=== PATIENT | female | born 1950 | race Caucasian/White ===

== ENCOUNTER 2016-08-04 22:03 | Emergency (ER) ==
[2016-08-04] MEDS ORDERED: ASPIRIN PO STA (22:12)
--- NOTE | 2016-08-04 22:17 | ED EKG INTERP ---
EKG Interpretation - EKG Time of EKG reading by physician:: 22:16 EKG Read and Signed by:: Lonny Harry EKG Interpretation (*Must complete 3 of following elements*): Abnormal (Low voltage QRS; Cannot rule out inferior infarct, age undetermined) Rate: 113 Rhythm: Sinus tachycardia Attestation - Scribe Verification/Attestation Scribe:: José Phillips Acting as Scribe for:: Lonny Harry [employer] documention review:: This chart was documented by a scribe and accurately reflects the service the provider performed and the decisions made by the provider.
[2016-08-04 22:19] LABS: MANUAL DIFF NEEDED? NO
[2016-08-04 22:38] LABS: BASO% 0.8 % (0.0-0.8); EOS# 0.15 X1000 (0.0-0.7); EOS% 1.2 % (0.0-10.0); HEMATOCRIT 39.9 % (37.0-47.0); HEMOGLOBIN 13.9 g/dL (12.0-16.0); IMM GRAN# 0.02 X1000 (0.0-0.04); IMM GRAN% 0.2 % (0.0-0.5); LYMPH# 3.72 X1000 (1.2-3.4); LYMPH% 29.7 % (20.5-51.1); MCH 30.5 PG (27-31); MCHC 34.8 g/dL (33-37); MCV 87.5 FL (81-99); MONO# 1.05 X1000 (0.11-0.59); MONO% 8.4 % (1.7-9.3); MPV 10.5 FL (7.4-10.4); NEUT% 59.7 % (42.2-75.2); PLT 373 X1000 (130-400); RBC 4.56 XMIL (4.2-5.4)
[2016-08-04 22:40] LABS: ALBUMIN 4.4 g/dL (3.5-5.0); CALCIUM 10.2 mg/dL (8.8-10.2); TOTAL BILIRUBIN 0.85 mg/dL (0.20-1.00); TOTAL PROTEIN 7.6 g/dL (6.3-8.3)
[2016-08-04 22:46] LABS: PROTIME 10.6 Seconds (9.2-11.7); PTT 26.6 Seconds (22.0-36.0)
[2016-08-04 23:15] LABS: CK INDEX 1.5 (0.0-2.5); CK-MB 3.03 ng/mL (0.0-5.0)
[2016-08-04] MEDS ORDERED: MORPHINE IV ONE (23:24)
[2016-08-04] MEDS ORDERED: ZOFRAN IV ONE (23:24)
--- NOTE | 2016-08-04 23:26 | PROVIDER DOCUMENTATION ---
HPI-Chest Pain - General Chief Complaint: Chest Pain Stated Complaint: CP Time Seen by Provider: 08/04/16 23:05 Source: patient Allergies/Adverse Reactions: Patient Allergies Allergy/AdvReac Type Severity Reaction Status Date / Time codeine Allergy NAUSEA/VOMI Verified 08/04/16 22:42 TING Home Medications: Home Medication List Medication Instructions Recorded Confirmed Last Taken Type Aspirin EC 81 mg PO DAILY 09/04/15 08/04/16 08/04/16 History Clopidogrel Bisulfate [Plavix] 75 mg PO DAILY 09/04/15 08/04/16 08/04/16 History Meclizine HCl [Antivert] 12.5 mg PO TID PRN PRN 09/04/15 08/04/16 1 Day Ago History Metoprolol Succinate E.r. [Toprol 12.5 mg PO QAM 09/04/15 08/04/16 08/04/16 History Xl] Nitroglycerin [Nitrostat] 0.4 mg SL DIRECTED 09/04/15 08/04/16 08/04/16 History Triamterene/Hctz [Maxzide-25] 1 each PO DAILY 09/04/15 08/04/16 08/04/16 History Gabapentin 300 mg PO 4XDAY 08/04/16 08/04/16 08/04/16 History Levocetirizine Dihydrochloride 5 mg PO QPM 08/04/16 08/04/16 08/04/16 History [Xyzal] Potassium Chloride [Klor-Con 8] 8 meq PO DAILY 08/04/16 08/04/16 08/04/16 History Tramadol [Ultram] 50 mg PO TID PRN 08/04/16 08/04/16 08/04/16 History - History of Present Illness-CP Nature of Presenting Problem: 66 yof c/o chest pain. Pt has history of CAD, with MO and Stents x3. Pt feels like the pain is the same as some of her previous MO. Pt took 2 nitros at home with some relief. Nausea but no vomiting. Mild SOB. Location: reports: substernal. denies: central, epigastric, shoulder, back, abdomen, other Chest Pain Radiation: reports: back. denies: no radiation, jaw, arms, neck, shoulders, sternal notch, epigastric, other Quality of Pain: reports: pressure, tightness. denies: none, aching, burning, cramping, dull, fullness, indigestion, sharp, stabbing, tearing, throbbing, other Severity in ED: moderate Onset/Duration: 4-6 hours ago Timing: still present Context/Activities at Onset: reports: rest. denies: none, light activity, moderate activity, vigorous activity, recent emotional stress, recent physical stress, recent trauma history, possible bad food, cold exposure, eating, out of country travel, sleep, sexual activity, other Modifying Factors: improves with: other medication (Nitro). worse with: nothing , analgesics, antacids, breathing, cold/heat therapy, coughing, defecating, eating, exercise, immobilization, lying down, massage, movement, palpation, rest , urinating, vomiting, other Associated Symptoms: reports: back pain, diaphoresis, nausea, shortness of breath. denies: denies symptoms, abdominal pain, dizziness, edema, fatigue, fever/chills, headache, heartburn, rash, swelling/lump in chest, syncope, vomiting, weakness Nitro Today/Relief: 0.4 mg x 2, provided at home, mild relief Aspirin Treatment Today: 325 mg x 1, provided by ED Prior Chest Pain/Cardiac Workup: reports: angina, cardiac cath, heart attack. denies: no prior chest pain, no prior cardiac workup, non-cardiac, cardiolite scan, echocardiography, pulmonary embolism, stress test, thallium scan, other Similar Symptoms Previously?: No Recently Seen Here or By Another Healthcare Provider: No Review of Systems - Adult - REVIEW OF SYSTEMS - ADULT Constitutional: reports: see HPI. denies: no symptoms reported, chills, fever, fatique, night sweats, weight gain, weight loss, other Eyes: reports: no symptoms reported. denies: see HPI, discharge, dry eyes, decreased vision, blurred vision, double vision, eye pain, redness, other Ears, Nose, Mouth & Throat: reports: no symptoms reported. denies: see HPI, ear discharge, ear pain, hearing loss, tinnitus, epistaxis, sinus problem, nose pain, loose teeth, mouth/dental pain, mouth swelling, hoarseness, throat pain, throat swelling, other Cardiovascular: reports: see HPI, chest pain. denies: no symptoms reported, edema, heart murmur, irregular heart rate, orthopnea, palpitations, poor circulation, PND, syncope, other Respiratory: reports: see HPI, shortness of breath. denies: no symptoms reported, chronic cough, cough, dyspnea on exertion, excessive sputum production , hemoptysis, pleurisy, wheezing, other Gastrointestinal: reports: see HPI, nausea. denies: no symptoms reported, abdominal pain, hematemesis, constipation, diarrhea, difficulty swallowing, frequent heartburn, poor appetite, rectal bleeding, vomiting, other Genitourinary: reports: no symptoms reported. denies: see HPI, dysuria, discharge, frequency, flank pain, frequent UTI's, hematuria, hesitency, incontinence, urinary retention, urgency, other Musculoskeletal: reports: no symptoms reported. denies: see HPI, bone pain, back pain, frequent leg cramps, joint pain, joint swelling, muscle aches, muscle weakness, neck pain, other Integumentary: reports: no symptoms reported. denies: see HPI, hives, hair loss , itching, mole changes, nail changes, rash, skin sores/ulcer, skin thickening, other Neurological: reports: no symptoms reported. denies: see HPI, ataxia, dizziness /vertigo, headache/migraines, loss of balance, numbness, paresthesia, seizure, slurred speech, syncope, tremors, other Psychiatric: reports: no symptoms reported. denies: see HPI, anxiety, anti- depressant use, alcohol/drug dependence, depression, emotional problems, insomnia, panic attacks, suicidal thoughts, other All Other Systems: Reviewed and Negative Past History - Adult - PAST MEDICAL HISTORY-ADULT Review of Records: reports: Old Records Reviewed, Nursing Assessment Review, Medications Reviewed, Social history reviewed & non-contributory. Major Childhood Illnesses: reports: denies history Cardiovascular: reports: CAD, HTN, MO Respiratory: reports: denies history Gastrointestinal: reports: denies history Obstetrical/Gynecological: reports: denies history Genitourinary: reports: denies history Musculoskeletal: reports: denies history Neurological: reports: denies history Endocrine/Immune: reports: denies history Other Conditions: reports: denies history - PRIOR SURGERIES/PROCEDURES Surgical/Procedure History: reports: none - IMMUNIZATION STATUS Childhood Immunizations: See Nurse Assessment Flu Vaccine: See Nurse Assessment - FAMILY HISTORY Family History: reviewed, not pertinent Physical Exam-General - PHYSICAL EXAM-ADULT Initial Vital Signs Reviewed: Yes - CONSTITUTIONAL General Appearance: appears well, alert, no apparent distress. negative: mild distress, moderate distress, severe distress, cachetic, obese, thin, anxious, lethargic, slow to respond, obtunded, combative, other - EYES Eyes: PERRL/EOMI, pink conjunctivae. negative: fundi clear, no AV nicking, anisocoria, conjuctival exudate, EOM palsy, meningismus, pale conjunctivae, photophobia, sclera injected, scleral icterus, subconjunctival hemorrhage, sunken eyes, other - HEAD, EARS, NOSE, MOUTH & THROAT HENMT: normocephalic/atraumatic, moist mucous membranes, normal ENT inspection, TMs normal, pharynx normal. negative: angioedema, dental decay, hearing deficit , pharyngeal erythema, tonsillar exudate, TM abnormal, TM obscurred by cerumen, frontal tenderness, maxillary tenderness, other - NECK Neck: non-tender, full range of motion, supple, normal inspection. negative: Brudzinski's sign, carotid bruit, C-spine tenderness, limited range of motion, lymphadenopathy, meningismus, trachial deviation, tender lateral, tender midline , thyromegaly, other - RESPIRATORY Respiratory: chest non-tender, lungs clear, normal breath sounds, no pleuratic chest pain, no respiratory distress, no accessory muscle use. negative: respiratory distress, decreased breath sounds, accessory muscle use, crackles, rales, rhonchi, stridor, wheezing, dull on percussion, prolonged expiration, pain on inspiration, plerual rub, retractions, splinting, decreased rate, increased rate, crepitus, other - CARDIOVASCULAR Cardiovascular: normal peripheral pulses, regular rate, rhythm, no edema, no gallop, no JVD, no murmur. negative: JVD, bradycardia, tachycardia, diastolic murmur, systolic murmur, gallop/S3, gallop/S4, extra beats, friction rub, irregularly irregular, PMI displaced laterally, other - CHEST (BREASTS) Chest/Breast: deferred - GASTROINTESTINAL (ABDOMEN) Abdominal Exam: normal bowel sounds, non tender, soft, no organomegaly, no pulsatile mass. negative: abdominal bruit, abnormal bowel sounds, distended, guarding, rigid, rebound, tenderness, hernia, mass, hepatomegaly, spleenomegaly , McBurney's point tenderness, Ovalle's sign, obturator sign, prominent aortic pulsations, psoas, Rovsing's sign, other - GENITOURINARY Female Genitalia/Pelvic Exam: deferred. negative: external exam normal, speculum exam normal, bimanual exam normal, no cerv. motion tender, no masses, active bleeding, blood, cervicitis, discharge, herpes-like ulcerations, lesions , mass, tender w/ cervical motion, tender adnexa, tender uterus, ulcers, other Rectal Exam: deferred. negative: normal exam, normal rectal tone, black stool, blood streaked stool, decreased tone, hemorrhoids, mass, prostate enlarged/ nodule, tenderness, other Hemoccult Exam: deferred - LYMPHATIC Lymphatic: no adenopathy. negative: axilla node tender, cervical node tenderness, inguinal node tender, enlargement, striations, streaking, other - MUSCULOSKELETAL Back Exam: normal inspection, no CVA tenderness, no vertebral tenderness. negative: CVA tenderness, decreased range of motion, ecchymosis, kyphosis, lordosis, muscle spasm, scoliosis, swelling, vertebral tenderness, other Extremity: normal range of motion, non-tender, normal gait, normal inspection, no pedal edema, no calf tenderness, normal capillary refill. negative: pelvis stable, abnormal NV exam, calf tenderness, deformity, erythema, inflammation, joint effusion, pulse deficit, pedal edema, slow capillary refill, swelling, tenderness, other Progress - PLAN OF CARE/RESULTS Progress/Plan/Lab Results: Laboratory Tests 08/04/16 08/04/16 08/04/16 22:15 22:15 22:15 WBC 12.52 H RBC 4.56 Hgb 13.9 Hct 39.9 MCV 87.5 MCH 30.5 MCHC 34.8 RDW Std Deviation 13.0 Plt Count 373 MPV 10.5 H Immature Gran % (Auto) 0.2 Neut % (Auto) 59.7 Lymph % (Auto) 29.7 Coffey % (Auto) 8.4 Eos % (Auto) 1.2 Baso % (Auto) 0.8 Immature Gran # (Auto) 0.02 Neut # (Auto) 7.48 H Lymph # (Auto) 3.72 H Coffey # (Auto) 1.05 H Eos # (Auto) 0.15 Baso # (Auto) 0.10 PT INR PTT (Actin FS) D-Dimer 0.28 Sodium 138 Potassium 3.0 L Chloride 96 L Carbon Dioxide 23 L Anion Gap 19 BUN 16 Creatinine 1.1 H Estimated GFR/1.73 m2 50 BUN/Creatinine Ratio 15 Glucose 118 H Calculated Osmolality 278 Calcium 10.2 Magnesium 2.0 Total Bilirubin 0.85 AST 20 ALT 12 Alkaline Phosphatase 62 Creatine Kinase 200 H Creatine Kinase Index 1.5 CK-MB (CK-2) 3.03 Troponin T [id number] Pept Total Protein 7.6 Albumin 4.4 Globulin 3.2 Albumin/Globulin Ratio 1.4 08/04/16 08/04/16 08/04/16 22:15 22:15 22:15 WBC RBC Hgb Hct MCV MCH MCHC RDW Std Deviation Plt Count MPV Immature Gran % (Auto) Neut % (Auto) Lymph % (Auto) Coffey % (Auto) Eos % (Auto) Baso % (Auto) Immature Gran # (Auto) Neut # (Auto) Lymph # (Auto) Coffey # (Auto) Eos # (Auto) Baso # (Auto) PT 10.6 INR 1.00 PTT (Actin FS) 26.6 D-Dimer Sodium Potassium Chloride Carbon Dioxide Anion Gap BUN Creatinine Estimated GFR/1.73 m2 BUN/Creatinine Ratio Glucose Calculated Osmolality Calcium Magnesium Total Bilirubin AST ALT Alkaline Phosphatase Creatine Kinase Creatine Kinase Index CK-MB (CK-2) Troponin T < 0.010 Lrg-[id number] Pept 92 Total Protein Albumin Globulin Albumin/Globulin Ratio Orders Category Date Time Status Saline Loc NOW Care 08/04/16 23:24 Active CHEST-2 VIEWS [RAD] Stat Exams 08/04/16 22:12 Taken CBC WITH ELECTRONIC DIFF [HEME] Stat Lab 08/04/16 22:15 Completed CK PROFILE [SP CHEM] Stat Lab 08/04/16 22:15 Completed COMPREHENSIVE METABOLIC PANEL [CHEM] Stat Lab 08/04/16 22:15 Completed D-DIMER [CHEM] Stat Lab 08/04/16 22:15 Completed MAGNESIUM [CHEM] Stat Lab 08/04/16 22:15 Completed PRO B-NATRIURETIC PEPTIDE Stat Lab 08/04/16 22:15 Completed PROTIME WITH INR [COAG] Stat Lab 08/04/16 22:15 Completed PTT [COAG] Stat Lab 08/04/16 22:15 Completed TROPONIN T Stat Lab 08/04/16 22:15 Completed Aspirin Med 08/04/16 22:12 Discontinued 325 mg PO STAT STA Morphine Med 08/04/16 23:24 Discontinued 4 mg IV NOW ONE Ondansetron [Zofran] Med 08/04/16 23:24 Discontinued 4 mg IV NOW ONE EKG [EKG] Stat Ther 08/04/16 22:06 Ordered Vital Signs Temp Pulse Resp BP Pulse Ox 08/04/16 22:41 105 H 20 183/83 99 08/04/16 22:07 98.1 F 113 H 20 171/70 98 codeine Allergy (Verified 08/04/16 22:42) NAUSEA/VOMITING Aspirin EC 81 mg PO DAILY 09/04/15 Clopidogrel Bisulfate [Plavix] 75 mg PO DAILY 09/04/15 Meclizine HCl [Antivert] 12.5 mg PO TID PRN PRN 09/04/15 Metoprolol Succinate E.r. [Toprol Xl] 12.5 mg PO QAM 09/04/15 Nitroglycerin [Nitrostat] 0.4 mg SL DIRECTED 09/04/15 Triamterene/Hctz [Maxzide-25] 1 each PO DAILY 09/04/15 Gabapentin 300 mg PO 4XDAY 08/04/16 Levocetirizine Dihydrochloride [Xyzal] 5 mg PO QPM 08/04/16 Potassium Chloride [Klor-Con 8] 8 meq PO DAILY 08/04/16 Tramadol [Ultram] 50 mg PO TID PRN 08/04/16 Laboratory 08/04/16 08/04/16 08/04/16 22:15 22:15 22:15 WBC RBC Hgb Hct MCV MCH MCHC RDW Std Deviation Plt Count MPV Immature Gran % (Auto) Neut % (Auto) Lymph % (Auto) Coffey % (Auto) Eos % (Auto) Baso % (Auto) Immature Gran # (Auto) Neut # (Auto) Lymph # (Auto) Coffey # (Auto) Eos # (Auto) Baso # (Auto) PT 10.6 INR 1.00 PTT (Actin FS) 26.6 D-Dimer Sodium Potassium Chloride Carbon Dioxide Anion Gap BUN Creatinine Estimated GFR/1.73 m2 BUN/Creatinine Ratio Glucose Calculated Osmolality Calcium Magnesium Total Bilirubin AST ALT Alkaline Phosphatase Creatine Kinase Creatine Kinase Index CK-MB (CK-2) Troponin T < 0.010 [id number]-Qupfvpsakok Pept 92 Total Protein Albumin Globulin Albumin/Globulin Ratio 08/04/16 08/04/16 08/04/16 22:15 22:15 22:15 WBC 12.52 H RBC 4.56 Hgb 13.9 Hct 39.9 MCV 87.5 MCH 30.5 MCHC 34.8 RDW Std Deviation 13.0 Plt Count 373 MPV 10.5 H Immature Gran % (Auto) 0.2 Neut % (Auto) 59.7 Lymph % (Auto) 29.7 Coffey % (Auto) 8.4 Eos % (Auto) 1.2 Baso % (Auto) 0.8 Immature Gran # (Auto) 0.02 Neut # (Auto) 7.48 H Lymph # (Auto) 3.72 H Coffey # (Auto) 1.05 H Eos # (Auto) 0.15 Baso # (Auto) 0.10 PT INR PTT (Actin FS) D-Dimer 0.28 Sodium 138 Potassium 3.0 L Chloride 96 L Carbon Dioxide 23 L Anion Gap 19 BUN 16 Creatinine 1.1 H Estimated GFR/1.73 m2 50 BUN/Creatinine Ratio 15 Glucose 118 H Calculated Osmolality 278 Calcium 10.2 Magnesium 2.0 Total Bilirubin 0.85 AST 20 ALT 12 Alkaline Phosphatase 62 Creatine Kinase 200 H Creatine Kinase Index 1.5 CK-MB (CK-2) 3.03 Troponin T [id number]-[id number] Pept Total Protein 7.6 Albumin 4.4 Globulin 3.2 Albumin/Globulin Ratio 1.4 - CONSULTS/PCP/HOSPITALIST Notification #1 *Consult/PCP/Hospitalist*: [facility] (Dr Dunlap) Time Discussed: 00:05 Reason/Comments: Transfer due to being her [employer] [employer] in [place] Departure - Departure Time of Disposition Order: 00:29 DIAGNOSIS: Chest pain Qualifiers: Chest pain type: unspecified Qualified Code(s): R07.9 - Chest pain, unspecified Disposition: [facility] 02 Certified Medical Emergency: Emergent Condition: Stable Attestation - Physician/ ELVIN Attestation Patient care was provided by Advanced Practice Provider:: Yes Advanced Practice Provider:: Omi Lopez Advanced Practice Provider documentation review:: The Mid-level provider documentation, treatment plan and medical decision making was reviewed by the physician who agrees with all treatment and medical decision making by the MLP.
[2016-08-05 01:03] VITALS: BP 153/78
--- NOTE | 2016-08-05 09:41 | Diag Imaging Result Document ---
PROCEDURE NAME: CHEST-2 VIEWS - 08/04/2016 TWO VIEWS OF THE CHEST: FINDINGS: There are old rib fractures on the left. There is some scarring in the apices. The heart size and pulmonary vascularity are within normal limits. Compared to 09/04/2015, there has been no significant change in the appearance of the chest. IMPRESSION: No acute disease.
--- NOTE | 2016-08-07 08:13 | EKG Report ---
Test Performed on : 08/04/2016 10:10:48 PM Test Reason : CP Blood Pressure : / mmHG Vent. Rate : 113 BPM Atrial Rate : 113 BPM P-R Int : 162 ms QRS Dur : 074 ms QT Int : 342 ms P-R-T Axes : 061 025 034 degrees QTc Int : 469 ms Sinus tachycardia. Low voltage QRS Cannot rule out Inferior infarct (cited on or before 07-NOV-2009) Abnormal ECG When compared with ECG of 07-NOV-2009 21:15, premature ventricular complexes. are no longer present Unconfirmed Result
== END 2016-08-05 01:02 | disposition short-term general hospital (02) ==
LOC: ED 22:03
DX: R07.9 Chest pain, unspecified (principal); M54.9 Dorsalgia, unspecified; R61 Generalized hyperhidrosis; R06.02 Shortness of breath; I25.10 Atherosclerotic heart disease of native coronary artery without angina pectoris; I10 Essential (primary) hypertension; I25.2 Old myocardial infarction; R94.31 Abnormal electrocardiogram [ECG] [EKG]; Z79.899 Other long term (current) drug therapy; R11.0 Nausea; Z79.82 Long term (current) use of aspirin; Z79.02 Long term (current) use of antithrombotics/antiplatelets
CPT/HCPCS: 71020; 80053; 82550; 82553; 83735; 83880; 84484; 85025; 85379; 85610; 85730; 93005; J2270; J2405

== ENCOUNTER 2016-08-17 07:44 | Day surgery (SDC) | payer OTHER ==
[2016-08-17] MEDS ORDERED: LR 1,000 ML ONE (08:06)
[2016-08-17] MEDS ORDERED: MYLICON DROPS (DOSE) MISC ONE (08:38)
[2016-08-17] MEDS ORDERED: DIPRIVAN 1% ONE (09:11)
[2016-08-17 09:31] VITALS: BP 100/60
[2016-08-17] MEDS ORDERED: XYLOCAINE-MPF 2% ONE (10:12)
[2016-08-17] MEDS ORDERED: EPHEDRINE ONE (10:12)
--- NOTE | 2016-08-17 12:39 | OPERATIVE NOTE ---
PROCEDURE DATE: 08/17/2016 PROCEDURE: Colonoscopy. The patient was immediately turned over and the colonoscopy was performed. . Photos taken from different parts of the colon, mainly in the left colon and also from the cecum. SPECIMEN: None. DESCRIPTION OF PROCEDURE: The patient was kept in the left lateral decubitus position. Rectal examination was performed. The anal canal lubricated. The Olympus video scope was introduced in the rectum and advanced to the cecum. The patient tolerated the procedure well and bowel preparation was good. FINDINGS: The rectum appeared normal without any lesions. The sigmoid had multiple diverticula with some narrowing and spasm of the colon with hypertrophy of the mucosa suggestive of diverticulosis. The descending colon also had a similar appearance. The splenic flexure was normal. The transverse colon had a few diverticula in the distal part. The rest of the transverse colon was normal. Hepatic flexure was normal. Ascending colon was normal. Cecum was identified by the presence of ileocecal valve and appendiceal orifice. There were no lesions present. Air was taken out from the patient's colon and scope was removed from the patient. IMPRESSION: Moderately severe diverticulosis of the left colon. RECOMMENDATION: The patient should eat a high-fiber diet and eat only cooked vegetables. Avoid salads and when she is eating some nuts they have to be chewed very thoroughly or else avoid nuts. The patient should avoid popcorn and drink a lot of fluids to get good bowel movements on a daily basis to prevent any significant pain in the left lower quadrant. I have explained all of this to the patient after she recovered from sedation. She should see me in the office in 2 weeks' time. At that time I will stress the diet once again for her. She may restart the Plavix today and also aspirin today. -2
--- NOTE | 2016-08-17 15:08 | OPERATIVE NOTE ---
PROCEDURE DATE: 08/17/2016 PROCEDURE: Esophagogastroduodenoscopy. HISTORY AND REASON FOR PROCEDURE: This patient was having chest pain and also has left lower quadrant pain. She has epigastric pain and history of heartburn and also history of diverticulosis of the colon. Her last colonoscopy was more than 6-7 years ago. Medications were all given by the Anesthesiologist. Patient was monitored before, during, and after the procedure by them and her condition remained stable. Photos taken from the antrum, distal esophagus, and also duodenal bulb. Specimen none. The patient went off her Plavix only for a couple of days. Therefore, it was not absolutely the necessary, I would not do any biopsy. I have explained that to her. DESCRIPTION OF PROCEDURE: The patient was kept in the left lateral decubitus position. A bite block applied. Premedication was given. The Olympus video scope was introduced under direct vision through the throat, advanced to the esophagus. The esophagus was then insufflated. The mucosa in the upper esophagus and mid esophagus appeared normal. Around the GE junction there was some erythema and edema present, giving the appearance of a grade 1 reflux esophagitis. The scope was advanced without any difficulty into the stomach. There was some clear debris which was aspirated and removed. The scope was taken down the antrum. The antrum had multiple punctate erosions present. There were no linear erosions. Pre-pyloric area these erosions were much more than other areas. The pylorus admitted the scope without any difficulty. Duodenal bulb had more erosions, some in large folds. Presence suggestive of a moderate duodenitis. The rest of the duodenum appeared normal. There was no evidence of any ulcer in the duodenum. Scope was withdrawn to the stomach, retroflexed. The angularis, lesser curvature, greater curvature, and fundus were examined carefully. There were no lesions anywhere in this area. The cardia appeared okay. Air was taken out from the patient's stomach and scope was removed from the patient. IMPRESSIONS: 1. Mild reflux esophagitis grade 1. 2. Mild chronic gastritis. 3. Duodenitis. RECOMMENDATIONS: The patient is already taking Protonix. Apparently Protonix did not seem to help her very much because it has been taken for a long time. The cardiologists has changed her to Prilosec. I asked her to continue the Prilosec. She should see me in the office in 2 weeks' time.
== END 2016-08-17 09:39 | disposition home or self-care (01) ==
LOC: ENDO 07:44
PROVIDERS: ATTEND Internal Medicine Gastroenterology
DX: K21.0 Gastro-esophageal reflux disease with esophagitis (principal); K29.50 Unspecified chronic gastritis without bleeding; K29.80 Duodenitis without bleeding; K57.30 Diverticulosis of large intestine without perforation or abscess without bleeding
CPT/HCPCS: J7120